=== PATIENT | female | born 1955 | race Caucasian/White ===

== ENCOUNTER 2016-06-02 17:05 | Outpatient (CLI) | payer OTHER ==
--- NOTE | 2016-06-02 19:51 | RAD ---
TWO VIEW CHEST 06/02/16 INDICATION: Cough with fever. No prior comparison. FINDINGS: There is no consolidation. The lungs are hyperinflated. The cardiac silhouette is borderline in size . Otherwise, no acute process. IMPRESSION: No focal consolidation. COPD. POS: [facility]
== END 2016-06-02 17:06 | disposition home or self-care (01) ==
LOC: MADRAD 17:05
PROVIDERS: ATTEND Physician Assistant
DX: R50.9 Fever, unspecified (principal)
CPT/HCPCS: 71020